=== PATIENT | male | born 2000 | race Caucasian/White ===

== ENCOUNTER 2020-09-19 01:47 | Emergency (ER) | payer OTHER ==
[~2020-09-19] VITALS: Ht 175.3 cm; Wt 93.2 kg
[2020-09-19 02:07] VITALS: TEMP 98.8
[2020-09-19] MEDS ORDERED: CRUTCHES MC (04:35)
[2020-09-19] MEDS ORDERED: MOTRIN 400400 MG/TAB PO (04:35)
[2020-09-19] MEDS ORDERED: TYLENOL 325MG325 MG PO (04:35)
[2020-09-19 04:45] VITALS: BP 137/80; PULSE 74
== END 2020-09-19 04:45 | disposition home or self-care (01) ==
LOC: COL.ER 01:47
DX: S99.912A Unspecified injury of left ankle, initial encounter (principal); F10.10 Alcohol abuse, uncomplicated; W01.0XXA Fall on same level from slipping, tripping and stumbling without subsequent striking against object, initial encounter